=== PATIENT | female | born 1980 | race Hispanic/Latino ===

== ENCOUNTER → 2022-05-02 | Outpatient (CLI) | payer OTHER ==
[~2022-05-02] MED LIST: IOPAMIDOL 370 MG/ML 100 ML INFUS..BTL INJ ONE
[2022-05-02 16:48] LABS: BLOOD UREA NITROGEN 19 mg/dL (7-26); BUN/CREATININE RATIO 25 (6-25); CREATININE, SERUM 0.77 mg/dL (0.57-1.11)
== END ==
LOC: CT 15:50
PROVIDERS: ATTEND Family Medicine
DX: R22.1 Localized swelling, mass and lump, neck (principal); K11.1 Hypertrophy of salivary gland
CPT/HCPCS: 36415; 70491; 82565; 84520; 84702; Q9967